=== PATIENT | male | born 1955 | race Caucasian/White ===

== ENCOUNTER 2018-04-15 22:15 | Emergency (ER) | payer BC ==
[~2018-04-15] VITALS: Ht 182.9 cm; Wt 84.2 kg
[~2018-04-15 22:15] MED LIST: ASCO10003 PO; CALCTAB7 PO; FISHOIL PO; GLUCTAB7 PO; SAW1CAP11 PO; VITA400C3 PO
[2018-04-15 22:17] VITALS: BP 134/86; TEMP 36.7; Ht 182.9 cm; Wt 84.2 kg
[2018-04-15 22:30] VITALS: PULSE 72; O2SAT 100
[2018-04-15] MEDS ORDERED: OFLO0.3D4 OTR ×2 (22:31→22:58)
--- NOTE | 2018-04-15 22:32 | EMERGENCY ROOM VISIT NOTE ---
History First contact with patient: 22:19 Chief Complaint: EAR PAIN Stated Complaint: BUG IN EAR History of Present Illness The patient is a 62 year old male who presents to the Emergency Room via private vehicle with complaints of "bug in ear". The patient states that about half an hour ago he was outside walking his dog, when he felt a bug flying to the right ear. He states that he could appreciate buzzing in the region. He notes and the buzzing stopped. He states that his did use tweezers and attempt to remove the bug from the right ear. He states that he became concerned therefore prompting his arrival here. He notes he does not feel anything buzzing around in the ear but does feel an odd sensation in the ear. He rates his pain as a 0/10. Review of Systems A complete 6-point Review of Systems was discussed with the patient, with pertinent positives and negatives listed in the History of Present Illness. All remaining Review of Systems questions can be considered negative unless otherwise specified. Past Medical/Surgical History Medical Problems: (1) Chronic Hepatitis C W/O Hepatic Coma (2) HTN (hypertension) (3) Hypertension Nos (4) Tobacco Use Disorder Surgical Problems: (1) History of arthroscopy of knee (2) History of cholecystectomy (3) History of inguinal herniorrhaphy Family History Hypertension Social History Smoking Status: Current Every Day Smoker Alcohol Use: none Drug Use: none Marital Status: Occupation Status: employed Current/Historical Medications Scheduled Ascorbic Acid (Vitamin C), 1,000 MG PO DAILY Calcium Carbonate-Vitamin D W/ (Caltrate 600 Plus), 1 TAB PO DAILY Fish Oil (Wells-3), 1 CAP PO DAILY Lgiugylvxki-Acotxxoaxlj-Paw C- (Glucosamine Chondroitin), 1 TABLET PO DAILY Ofloxacin (Otic) (Floxin Otic), 5 DROPS OTR BID Saw [place]rae [place] ([place] Repens) (Saw Mcrae [place]ena), 500 MG PO DAILY Vitamin E (Vitamin E 400 Iu), 400 INTER.UNIT PO DAILY Physical Exam Vital Signs Date Time Temp Pulse Resp B/P (MAP) Pulse Ox O2 Delivery O2 Flow Rate FiO2 04/15/18 22:30 72 18 100 04/15/18 22:17 36.7 70 16 134/86 99 Room Air Physical Exam VITAL SIGNS - Vital signs and nursing notes were reviewed. Stable. Afebrile GENERAL -62-year-old male appearing his stated age who is in no acute distress. Communicates well with provider and answers questions appropriately. SKIN - Without rashes. No meningeal or petechial rash. The skin overlying the patient's right ears unremarkable. External inspection is unremarkable. There is no excoriation, rash or retained foreign body. Left ear unremarkable to inspection. HEAD - NC/AT. EYES - PERRL with EOMI bilaterally. Sclera anicteric. Palpebral conjunctiva pink and moist with no injection noted. EARS - No deformities of external structures noted on gross examination bilaterally. No pain elicited with palpation of the tragus bilaterally. External auditory canals without discharge or otorrhea. Tympanic membranes pearly montez without retraction or bulging. No fluid or purulent material visualized behind the TM. Handle of malleus, umbo, cone of light, pars tensa/ flaccid all easily visualized. Left ear canal unremarkable. Ear canals does elicit some dependent cerumen in the inferior portion as well as the anterior portion. No retained bug or foreign body noted. No TM perforation. No bleeding. Minimal erythema noted to the superior portion of the ear canal. NOSE - Midline and without cyanosis. No epistaxis or purulent drainage noted. Septum midline without deviation or septal hematoma noted. MOUTH/OROPHARYNX - Without perioral cyanosis. Buccal mucosa pink and moist and without leukoplakia. Tongue midline with equal elevation of palate bilaterally. No tonsillar hypertrophy, erythema, or exudates noted. Fair dentition noted. Medical Decision & Procedures Medical Decision Patient was seen and evaluated as above in room B3. Review was performed of nursing notes and vital signs. After obtaining a thorough history and physical examination the above work up was performed. He presents to us today with sensation of a bug in the right ear. I believe that it initially was in the ear and has flown out or was retrieved by the . At this time there is no evidence of retained foreign body. There is no blood. No live insect. No evidence of TM perforation. He notes no pain. I inspected the ear a few different times. Different positioning was also utilized and no insect was found. He is to follow with the family doctor or return with worsening. I did offer him antibiotic eyedrops to begin tomorrow if the ear feels more irritated. He is to return with any worsening. The patient was educated upon management, educated upon todays findings/results, educated upon symptoms in which to return, had questions answered prior to discharge, and was discharged home in good condition. In the evaluation and treatment of this patient the following differential diagnoses were entertained: Retained foreign body, insect, TM perforation, among others. Impression Primary Impression: Discomfort of right ear Departure Information Dispostion Home / Self-Care Condition GOOD Prescriptions Ofloxacin (Otic) (FLOXIN OTIC) 0.3 % Yared 5 DROPS OTR DAILY for 7 Days, #525 ML Prov: Dre Ford PA-C 04/15/18 Referrals Danyel Adrian MD (PCP) Patient Instructions My [facility] Additional Instructions You were seen in the emergency department for he suspected insect in the right ear. At this time I believe it has left the ear cavity. I recommend follow-up with the family doctor for recheck of the ear in a few days. Please return here for worsening. I have prescribed you ofloxacin eardrops if the ear feels irritated tomorrow. This is 5 drops to the right ear for 7 days. Please return with any new/concerning symptoms.
== END 2018-04-15 22:30 | disposition home or self-care (01) ==
LOC: C.EDB 22:16
DX: H92.09 Otalgia, unspecified ear (principal); I10 Essential (primary) hypertension; F17.200 Nicotine dependence, unspecified, uncomplicated